=== PATIENT | female | born 2000 | race Caucasian/White ===

== ENCOUNTER 2023-01-11 17:08 | Emergency (ER) | payer OTHER, SELFPAY ==
--- NOTE | 2023-01-11 17:13 | ED.URI ---
HPI - URI/Sore Throat General Chief Complaint: Upper Respiratory Infection Stated Complaint: Unknown Time Seen by Provider: 01/11/23 17:25 History of Present Illness HPI Narrative: 22-year-old female presented for complaint of sore throat, body aches, hot/cold flashes and one episode of vomiting. Onset yesterday. Denies back. Denies shortness breath, wheezing, nausea, vomiting or lethargy. Taking Motrin for symptoms. Cardiac history dx with hypertrophic cardiomyopathy 2020 and POTS Related Data Home Medications Medication Instructions Recorded Confirmed doxepin 10 mg capsule 40 mg PO HS 01/11/23 01/11/23 ivabradine 5 mg tablet (Corlanor) 5 mg PO BID 01/11/23 01/11/23 lorazepam 0.5 mg tablet 0.5 mg PO BID PRN Anxiety 01/11/23 01/11/23 metoprolol succinate 25 mg 25 mg PO DAILY 01/11/23 01/11/23 tablet,extended release 24 hr zolpidem 10 mg tablet 10 mg PO HS 01/11/23 01/11/23 Allergies Allergy/AdvReac Type Severity Reaction Status Date / Time No Known Allergies Allergy Verified 01/11/23 17:11 Review of Systems Review of Systems: CONSTITUTIONAL: Reports body aches, fever, chills, or sweats. EYES: Denies visual changes, redness, or discharge. ENT: Reports sore throat Denies rhinorrhea, congestion, or otalgia. CARDIOVASCULAR: Denies chest pain, palpitations, or edema. RESPIRATORY: Denies dyspnea. GASTROINTESTINAL: Denies abdominal pain, nausea, vomiting, or diarrhea. SKIN: Denies rash, itching, or wounds. MUSCULOSKELETAL: Denies back pain, joint pain, or myalgia. NEUROLOGIC: Denies headache [facility] Past Medical History Medical History (Updated 01/11/23 @ 19:33 by Kanchan Washington, [employer] DATA [employer]) Hypertrophic cardiomyopathy POTS (postural orthostatic tachycardia syndrome) Exam Narrative: GENERAL: Ill-appearing, nontoxic, no acute distress. EYES: conjunctivae clear ENT: Mucous membranes moist. TMs pearly morris with normal light reflex bilaterally; no tragal tenderness. Oropharynx erythematous Tonsils enlarged with exudate. No drooling, no hoarseness, no trismus, uvula midline. No tripod positioning, hot potato voice, or soft palate swelling. NECK: Supple. No lymphadenopathy CHEST: Clear to auscultation, breath sounds equal. No respiratory distress, speaks in full sentences. HEART: Regular rate and rhythm. No murmur heard. SKIN: Warm, dry, no rash. NEURO: Alert and oriented x3. Course Course Emergency Course: Patient is aware of diagnosis, understands and agrees to treatment plan. Anticipatory guidance given. Patient agrees to follow-up as directed and is aware of reasons to seek care at the emergency department. Portions of this record may have been created with voice recognition software Level of Care: Express Care Visit Vital Signs Vital signs: Vital Signs Temperature 98.8 F 01/11/23 17:20 Pulse Rate 110 H 01/11/23 17:20 Respiratory Rate 18 01/11/23 17:20 Blood Pressure 119/73 01/11/23 17:20 Pulse Oximetry 98 01/11/23 17:20 Oxygen Delivery Room Air 01/11/23 17:20 Temperature 98.8 F 01/11/23 17:20 Pulse Rate 110 H 01/11/23 17:20 Respiratory Rate 18 01/11/23 17:20 Blood Pressure 119/73 01/11/23 17:20 Pulse Oximetry 98 01/11/23 17:20 Oxygen Delivery Room Air 01/11/23 17:20 MDM - URI/Sore Throat MDM Narrative Medical decision making narrative: Discussed physical exam findings with patient will treat for strep pharyngitis. No testing at this time; Treating based on symptoms and physical exam. Patient is allergic to amoxicillin, she is advised to monitor symptoms closely as she will be treated with azithromycin. Advised supportive measures and signs/symptoms to go to the ER including tonsillar abscess. Pt is appropriate for outpt treatment and f/u. Differential Diagnosis Differential diagnosis: Likely upper respiratory infection, viral infection and pharyngitis Discharge Plan Discharge Clinical Impression: Acute tonsillitis Qualifiers:
[2023-01-11 17:20] VITALS: BP 119/73; PULSE 110; RESP 18; TEMP 37.1; O2SAT 98
== END 2023-01-11 17:39 | disposition home or self-care (01) ==
PROVIDERS: Emergency Provider Nurse Practitioner Family
DX: J03.90 Acute tonsillitis, unspecified (principal); I42.2 Other hypertrophic cardiomyopathy; G90.A Postural orthostatic tachycardia syndrome [POTS]
CPT/HCPCS: 99203; G0463

== ENCOUNTER 2023-01-31 15:27 | Emergency (ER) | payer OTHER, SELFPAY ==
[2023-01-31 15:44] VITALS: BP 105/68; PULSE 83; RESP 18; TEMP 36.8; O2SAT 98
--- NOTE | 2023-01-31 15:56 | ED.FEMALEGU ---
HPI - Female Genitourinary General Chief complaint: Urogenital-Female Stated complaint: uti symptoms Time Seen by Provider: 01/31/23 15:50 Source: patient and RN notes reviewed Mode of arrival: ambulatory Limitations: no limitations History of Present Illness HPI Narrative: Patient presents today complaining of dysuria, low back pain, hematuria, and difficulty initiating a urine stream since last night. Denies any additional symptoms. She took 1 dose of azo this morning without relief. Denies any recent antibiotic use. Related Data Home Medications Medication Instructions Recorded Confirmed doxepin 10 mg capsule 40 mg PO HS 01/11/23 01/31/23 ivabradine 5 mg tablet (Corlanor) 5 mg PO BID 01/11/23 01/31/23 lorazepam 0.5 mg tablet 0.5 mg PO BID PRN Anxiety 01/11/23 01/31/23 metoprolol succinate 25 mg 25 mg PO DAILY 01/11/23 01/31/23 tablet,extended release 24 hr zolpidem 10 mg tablet 10 mg PO HS 01/11/23 01/31/23 alprazolam 0.5 mg tablet,extended 0.5 mg PO PRN PRN Anxiety 01/31/23 01/31/23 release 24 hr spironolactone 25 mg tablet 25 mg PO DAILY 01/31/23 01/31/23 Allergies Allergy/AdvReac Type Severity Reaction Status Date / Time amoxicillin [From Augmentin] Allergy Unknown Verified 01/31/23 15:41 clavulanic acid Allergy Unknown Verified 01/31/23 15:41 [From Augmentin] Review of Systems Review of Systems: CONSTITUTIONAL: Denies body aches, fever, chills, or sweats. EYES: Denies visual changes, redness, or discharge. ENT: Denies rhinorrhea, congestion, sore throat, or otalgia. CARDIOVASCULAR: Denies chest pain, palpitations, or edema. RESPIRATORY: Denies cough or dyspnea. GASTROINTESTINAL: Denies abdominal pain, nausea, vomiting, or diarrhea. GENITOURINARY: Dysuria, hematuria. SKIN: Denies rash, itching, or wounds. MUSCULOSKELETAL: Denies joint pain, or myalgia.+ low back pain NEUROLOGIC: Denies headache, numbness, tingling, or weakness. PSYCH: Denies depression or anxiety. [facility] Past Medical History Medical History Hypertrophic cardiomyopathy POTS (postural orthostatic tachycardia syndrome) Comments At time of signature, I have reviewed and agree with nursing past medical, surgical, social and family history unless otherwise noted. Please see nursing chart for further information. There is no relevant family history pertinent to the presenting complaint Exam Narrative: GENERAL: Well-appearing, well-nourished, and in no acute distress. HEAD: Normocephalic, atraumatic. EYES: EOMI. No redness or drainage. Conjunctivae normal. ENT: Mucous membranes pink and moist. NECK: Normal AROM. CHEST: No respiratory distress. Clear to auscultation. HEART: Regular rate and rhythm. No murmur appreciated. Normal peripheral pulses. ABDOMEN: Soft, nontender, nondistended, normal active bowel sounds.-CVAT MUSCULOSKELETAL: No bony tenderness. EXTREMITIES: Normal range of motion. No edema. SKIN: Warm, dry, no rash. Capillary refill normal. Normal skin turgor. NEURO: No focal deficits. Alert and oriented x3. Gait steady. PSYCH: Normal affect. No signs of depression or anxiety. Course Course Level of Care: Express Care Visit Vital Signs Vital signs: Vital Signs Temperature 98.3 F 01/31/23 15:44 Pulse Rate 83 01/31/23 15:44 Respiratory Rate 18 01/31/23 15:44 Blood Pressure 105/68 01/31/23 15:44 Pulse Oximetry 98 01/31/23 15:44 Oxygen Delivery Room Air 01/31/23 15:44 Temperature 98.3 F 01/31/23 15:44 Pulse Rate 83 01/31/23 15:44 Respiratory Rate 18 01/31/23 15:44 Blood Pressure 105/68 01/31/23 15:44 Pulse Oximetry 98 01/31/23 15:44 Oxygen Delivery Room Air 01/31/23 15:44 Reviewed MDM - Female Genitourinary MDM Narrative Medical decision making narrative: Patient took azo prior to arrival, therefore urinalysis is not diagnostic. Will place patient on Keflex. Culture pending. An
== END 2023-01-31 16:05 | disposition home or self-care (01) ==
PROVIDERS: Emergency Provider Nurse Practitioner
DX: N30.01 Acute cystitis with hematuria (principal); I42.2 Other hypertrophic cardiomyopathy; G90.A Postural orthostatic tachycardia syndrome [POTS]
CPT/HCPCS: 81003; 87077; 87086; 87186; 99213; G0463

== ENCOUNTER 2023-07-29 17:14 | Emergency (ER) | payer OTHER, SELFPAY ==
--- NOTE | 2023-07-29 17:22 | ED.FEMALEGU ---
HPI - Female Genitourinary General Chief complaint: Urogenital-Female Stated complaint: uti symptoms Time Seen by Provider: 07/29/23 17:53 Source: patient, RN notes reviewed and old records reviewed Mode of arrival: ambulatory Limitations: no limitations History of Present Illness HPI Narrative: 22-year-old female presents to the [facility] with concerns for a UTI. Azo this morning. Patient reports pain with urination, frequency and low back discomfort. States that she hold her urine on the plane when she returned. Denies any abdominal pain. Denies fevers. Denies nausea or vomiting. Onset (ago): day(s) (5) Patient : No Date of Last Menstrual Period: 07/11/23 Related Data Home Medications Medication Instructions Recorded Confirmed doxepin 10 mg capsule 40 mg PO HS 01/11/23 07/29/23 zolpidem 10 mg tablet 10 mg PO HS 01/11/23 07/29/23 Allergies Allergy/AdvReac Type Severity Reaction Status Date / Time amoxicillin [From Augmentin] AdvReac Mild Hives Verified 07/29/23 17:45 clavulanic acid AdvReac Mild Hives Verified 07/29/23 17:45 [From Augmentin] Review of Systems Review of Systems: All systems reviewed & are unremarkable except as noted in HPI and below Constitutional: Constitutional: Reports no additional constitutional complaints Eyes: Eyes: Reports no additional eye complaints ENT: Reports system reviewed and no additional complaints, except as documented Cardiovascular: Cardiovascular: Reports no additional cardiovascular complaints, Denies chest pain and Denies dyspnea Respiratory: Respiratory: Reports no additional respiratory complaints, Denies chest congestion, Denies cough and Denies dyspnea Gastrointestinal: Gastrointestinal: Reports no additional gastrointestinal complaints, Denies abdominal pain, Denies nausea and Denies vomiting Genitourinary: Genitourinary: Reports as per HPI Musculoskeletal: Musculoskeletal: Reports no additional musculoskeletal complaints Integumentary/Breasts: Skin/Breast: Reports system reviewed and no additional complaints, except as docu Neurologic: Reports system reviewed and no additional complaints, except as documented Psychiatric: Psychiatric: Reports no additional psychiatric complaints Allergic/Immunologic: Allergic/Immunologic: Reports no additional allergic/immunologic complaints PMFSH Past Medical History Medical History Hypertrophic cardiomyopathy POTS (postural orthostatic tachycardia syndrome) Comments At the time of my signature, I reviewed and agree with the nursing past medical, surgical, social, and family history. There is no relevant family history pertinent to the patient complaint. Exam Const: General: cooperative, healthy appearing, comfortable, no acute distress, well developed, alert and well nourished Nutritional Appearance: well nourished Orientation/consciousness: patient oriented x3 Limitations: no limitations HENMT: Head: normal to inspection Ears: hearing grossly normal bilaterally and external ears normal Face/Nose/Sinus: Normal external nose present, Normal nares present, Normal nasal mucous membranes and turbinates present, normal facial exam and face symmetric Face and sinus: normal facial exam and face symmetric Eyes: General: appearance normal, both eyes and all related structures Alignment and Position: alignment normal Periorbital: periorbital findings normal Pupils: Equal, round and reactive pupils present EOM: EOMs intact bilaterally Neck: Neck: normal visual inspection, full ROM, no lymphadenopathy and no meningeal signs Chest: Chest palpation & inspection: normal inspection of the chest Resp: Effort & Inspection: normal respiratory effort and able to speak in complete sentences Auscultation: clear to auscultation bilaterally, no crackles, no rales, no rhonchi and no wheezes Cardio: Rate: regular rate Rhythm: regular rhythm GI: GI Palp: No abd
[2023-07-29 17:32] VITALS: BP 117/72; PULSE 90; RESP 16; TEMP 36.5; O2SAT 99
== END 2023-07-29 18:01 | disposition home or self-care (01) ==
PROVIDERS: Emergency Provider Nurse Practitioner
DX: N30.00 Acute cystitis without hematuria (principal); Z79.899 Other long term (current) drug therapy
CPT/HCPCS: 81003; 87077; 87086; 87088; 99213; G0463